=== PATIENT | female | born 1970 | race African-American/Black ===

== ENCOUNTER 2018-06-12 09:53 | Emergency (ER) | payer MEDICARE, MEDICAID ==
[2018-06-12] MEDS ORDERED: BACLOFEN 20 MG TABLET PO ONE (10:11)
[2018-06-12] MEDS ORDERED: KETOROLAC TROMETHAMINE 60 MG/2 ML SDV IM ONE (10:11)
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
[2018-06-12 11:08] LABS: ABSOLUTE LYMPHOCYTES (AUTO) 1.1 10^3/uL (0.5-4.7); ABSOLUTE MONOCYTES (AUTO) 0.4 10^3/uL (0.1-1.4); BASOPHILS % (AUTO) 0.6 % (0-2); EOSINOPHILS % (AUTO) 0.2 % (0-6); HEMATOCRIT 37.4 % (36.0-47.0); HEMOGLOBIN 12.4 g/dL (12.0-15.5); LYMPHOCYTES % (AUTO) 14.2 % (13-45); MEAN CORPUSCULAR HEMOGLOBIN 26.8 pg (27.0-33.4); MEAN CORPUSCULAR HGB CONC 33.2 g/dL (32.0-36.0); MEAN CORPUSCULAR VOLUME 81 fl (80-97); MONOCYTES % (AUTO) 5.5 % (3-13); PLATELET COUNT 290 10^3/uL (150-450); RED BLOOD COUNT 4.63 10^6/uL (3.72-5.28); RED CELL DISTRIBUTION WIDTH 14.7 % (11.5-14.0); SEGMENTED NEUTROPHILS % (AUTO) 79.5 % (42-78); TOTAL CELLS COUNTED % (AUTO) 100 %; WHITE BLOOD COUNT 7.6 10^3/uL (4.0-10.5)
--- NOTE | 2018-06-12 11:14 | RADIOLOGY REPORT (SQ) ---
EXAM DESCRIPTION: L SPINE WHOLE COMPLETED DATE/TIME: 06/12/2018 10:50 am REASON FOR STUDY: Back pain COMPARISON: None. NUMBER OF VIEWS: Five views including obliques. TECHNIQUE: AP, lateral, oblique, and sacral radiographic images acquired of the lumbar spine. LIMITATIONS: None. FINDINGS: MINERALIZATION: Normal. SEGMENTATION: Normal. No transitional anatomy. ALIGNMENT: There is a minimal lumbar scoliosis convex to the left. VERTEBRAE: Maintained height. No fracture or worrisome bone lesion. DISCS: There is multilevel disc space reduction with associated osteophytic lipping. POSTERIOR ELEMENTS: Pedicles and facets are intact. No pars defect or posterior arch defects. HARDWARE: None in the spine. PARASPINAL SOFT TISSUES: Normal. PELVIS: Intact as visualized. No fractures or worrisome bone lesions. SI joints intact. OTHER: No other significant finding. IMPRESSION: Degenerative changes as noted above. TECHNICAL DOCUMENTATION: JOB ID: [id number] [employer]- All Rights Reserved Reading location - IP/workstation name: [email or web address]
[2018-06-12 11:26] LABS: APPEARANCE,URINE CLEAR; BILIRUBIN,URINE NEGATIVE (NEGATIVE); COLOR,URINE YELLOW; GLUCOSE, URINE 500 mg/dL (NEGATIVE)
[2018-06-12 11:27] LABS: KETONES,URINE 25 mg/dL (NEGATIVE); LEUKOCYTE ESTERASE,URINE NEGATIVE (NEGATIVE); NITRITE,URINE NEGATIVE (NEGATIVE); PROTEIN,URINE 100 mg/dL (NEGATIVE); URINE SPECIFIC GRAVITY 1.033; UROBILINOGEN,URINE NEGATIVE mg/dL (<2.0)
[2018-06-12 11:30] LABS: ALANINE AMINOTRANSFERASE 35 U/L (9-52); ALBUMIN 4.5 g/dL (3.5-5.0); ALKALINE PHOSPHATASE 45 U/L (38-126); ANION GAP 15 (5-19); ASPARTATE AMINO TRANSFERASE 30 U/L (14-36); BILIRUBIN,DIRECT 0.4 mg/dL (0.0-0.4); BILIRUBIN,TOTAL 0.5 mg/dL (0.2-1.3); BLOOD UREA NITROGEN 11 mg/dL (7-20); CALCIUM 9.5 mg/dL (8.4-10.2); CARBON DIOXIDE 21 mmol/L (22-30); CHLORIDE 103 mmol/L (98-107); GLUCOSE 218 mg/dL (75-110); POTASSIUM 4.3 mmol/L (3.6-5.0); SODIUM 138.8 mmol/L (137-145); TOTAL PROTEIN 7.6 g/dL (6.3-8.2)
[2018-06-12 11:34] LABS: URINE AMPHETAMINES SCREEN NEGATIVE; URINE BARBITURATES SCREEN NEGATIVE; URINE BENZODIAZEPINES SCREEN NEGATIVE; URINE COCAINE SCREEN NEGATIVE; URINE MARIJUANA (THC) SCREEN NEGATIVE; URINE METHADONE SCREEN NEGATIVE; URINE PHENCYCLIDINE SCREEN NEGATIVE
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
--- NOTE | 2018-06-12 13:38 | RADIOLOGY REPORT (SQ) ---
EXAM DESCRIPTION: CT LTD RENAL STONE PROTOCOL ON COMPLETED DATE/TIME: 06/12/2018 1:27 pm REASON FOR STUDY: r flank pain COMPARISON: None. TECHNIQUE: CT scan of the abdomen and pelvis performed without intravenous or oral contrast. Images reviewed with lung, soft tissue, and bone windows. Reconstructed coronal and sagittal MPR images revi ewed. All images stored on PACS. All CT scanners at this facility use dose modulation, iterative reconstruction, and/or weight based d osing when appropriate to reduce radiation dose to as low as reasonably achievable (ALARA). [facility]: Dose Right [facility]: CareDose [facility]: Dose Right [facility]: Teradose 4D [facility]: Smart Birdi RADIATION DOSE: CT Rad equipment meets quality standard of care and radiation dose reduction techniq ues were employed. CTDIvol: 13.4 mGy. DLP: 771 mGy-cm.mGy. LIMITATIONS: None. FINDINGS: LOWER CHEST: No significant findings. No nodules or infiltrates. NON-CONTRASTED LIVER, SPLEEN, ADRENALS: Evaluation limited by lack of IV contrast. No identified sign ificant masses. PANCREAS: No masses. No peripancreatic inflammatory changes. GALLBLADDER: No identified stones by CT criteria. No inflammatory changes to suggest cholecystitis. RIGHT KIDNEY AND URETER: No suspicious masses. Assessment limited by lack of IV contrast. No signif icant calcifications. No hydronephrosis or hydroureter. LEFT KIDNEY AND URETER: No suspicious masses. Assessment limited by lack of IV contrast. No signifi cant calcifications. No hydronephrosis or hydroureter. AORTA AND RETROPERITONEUM: No aneurysm. No retroperitoneal masses or adenopathy. BOWEL AND PERITONEAL CAVITY: No obvious masses or inflammatory changes. No free fluid. APPENDIX: Normal. PELVIS, BLADDER, AND ABDOMINAL WALL:There is uterine enlargement measuring 11 cm in AP diameter, 14.1 cm in transverse diameter, and 15.1 cm in cephalocaudal dad diameter most consistent with an enlarge d fibroid uterus. No free fluid. Bladder normal. BONES: Degenerative changes are identified in the lumbar spine with a mild lumbar scoliosis convex to the left OTHER: No other significant finding. IMPRESSION: Enlarged uterus as noted above most consistent with a fibroid uterus. No other signific ant intra-abdominal or pelvic abnormalities were identified. Other findings as noted above COMMENT: Quality ID # [id number]: Final reports with documentation of one or more dose reduction techniques (e.g., Automated exposure control, adjustment of the mA and/or kV according to patient size, use of iterative reconstruction technique) TECHNICAL DOCUMENTATION: JOB ID: [id number] [employer]- All Rights Reserved Reading location - IP/workstation name: [email or web address]
[2018-06-12] MEDS ORDERED: LIDOCAINE 5% (700 MG) TRANSDERMAL ADH..PATCH TP ONE (13:52)
[2018-06-12 14:31] VITALS: BP 135/86
== END 2018-06-12 14:29 | disposition home or self-care (01) ==
LOC: ER 09:53
DX: M54.5 Low back pain (principal); R10.9 Unspecified abdominal pain; I10 Essential (primary) hypertension; E11.9 Type 2 diabetes mellitus without complications
CPT/HCPCS: 99284; 96372; 36415; 85025; 81025; 80053; 81001; 80307; 72110; 76380; J1885; A9270; J3490

== ENCOUNTER 2018-08-07 05:17 | Inpatient (IN) | payer MEDICARE, MEDICAID ==
[2018-07-31 11:41] LABS: APPEARANCE,URINE CLEAR; BILIRUBIN,URINE NEGATIVE (NEGATIVE); COLOR,URINE YELLOW; GLUCOSE, URINE 150 mg/dL (NEGATIVE); KETONES,URINE NEGATIVE (NEGATIVE); LEUKOCYTE ESTERASE,URINE NEGATIVE (NEGATIVE); NITRITE,URINE NEGATIVE (NEGATIVE); PROTEIN,URINE NEGATIVE (NEGATIVE); URINE SPECIFIC GRAVITY 1.018; UROBILINOGEN,URINE NEGATIVE mg/dL (<2.0)
[2018-07-31 12:17] LABS: HEMATOCRIT 34.7 % (36.0-47.0); HEMOGLOBIN 12.1 g/dL (12.0-15.5); MEAN CORPUSCULAR HEMOGLOBIN 28.3 pg (27.0-33.4); MEAN CORPUSCULAR HGB CONC 34.9 g/dL (32.0-36.0); MEAN CORPUSCULAR VOLUME 81 fl (80-97); PLATELET COUNT 272 10^3/uL (150-450); RED BLOOD COUNT 4.29 10^6/uL (3.72-5.28); RED CELL DISTRIBUTION WIDTH 13.9 % (11.5-14.0); WHITE BLOOD COUNT 6.8 10^3/uL (4.0-10.5)
[2018-07-31 12:44] LABS: ALANINE AMINOTRANSFERASE 28 U/L (9-52); ALBUMIN 4.5 g/dL (3.5-5.0); ALKALINE PHOSPHATASE 50 U/L (38-126); ANION GAP 16 (5-19); ASPARTATE AMINO TRANSFERASE 15 U/L (14-36); BILIRUBIN,DIRECT 0.1 mg/dL (0.0-0.4); BILIRUBIN,TOTAL 0.5 mg/dL (0.2-1.3); BLOOD UREA NITROGEN 11 mg/dL (7-20); CALCIUM 9.6 mg/dL (8.4-10.2); CARBON DIOXIDE 26 mmol/L (22-30); CHLORIDE 98 mmol/L (98-107); GLUCOSE 169 mg/dL (75-110); POTASSIUM 5.1 mmol/L (3.6-5.0); TOTAL PROTEIN 7.1 g/dL (6.3-8.2)
--- NOTE | 2018-07-31 13:14 | RADIOLOGY REPORT (SQ) ---
EXAM DESCRIPTION: CHEST PA/LATERAL COMPLETED DATE/TIME: 07/31/2018 12:09 pm REASON FOR STUDY: PRE-OP COMPARISON: None. EXAM PARAMETERS: NUMBER OF VIEWS: two views TECHNIQUE: Digital Frontal and Lateral radiographic views of the chest acquired. RADIATION DOSE: NA LIMITATIONS: none FINDINGS: LUNGS AND PLEURA: No opacities, masses or pneumothorax. No pleural effusion. MEDIASTINUM AND HILAR STRUCTURES: No masses or contour abnormalities. HEART AND VASCULAR STRUCTURES: Heart normal size. No evidence for failure. BONES: No acute findings. HARDWARE: None in the chest. OTHER: No other significant finding. IMPRESSION: NO SIGNIFICANT RADIOGRAPHIC FINDING IN THE CHEST. TECHNICAL DOCUMENTATION: JOB ID: [id number] [employer]- All Rights Reserved Reading location - IP/workstation name: [email or web address]
--- NOTE | 2018-07-31 13:18 | EKG REPORT ---
SEVERITY:- BORDERLINE ECG - SINUS RHYTHM LVH BY VOLTAGE : Confirmed by: Laureano Gage MD 31-Jul-2018 13:18:11
[~2018-08-07 05:17] MED LIST: CEFAZOLIN 1 GM/D5W RTU 1 GM/50 ML RTUPB IV PRN; LACTATED RINGERS 1000 ML IV PRN; LIDOCAINE 0.5% INJ-PF (5 MG/ML) 50 ML SDV SUBCUT PRN
[2018-08-07] MEDS ORDERED: CEFAZOLIN 1 GM/D5W RTU 1 GM/50 ML RTUPB IV ONE (05:23)
[2018-08-07] MEDS ORDERED: LIDOCAINE 2% INJ-PF (20 MG/ML) 10 ML AMPUL ONE (06:36)
[2018-08-07] MEDS ORDERED: ONDANSETRON HCL INJ/PF 4 MG/2 ML SDV ONE (06:37)
[2018-08-07] MEDS ORDERED: DEXAMETHASONE SOD PHOSPHATE INJ 4 MG/1 ML VIAL ONE (06:37)
[2018-08-07] MEDS ORDERED: PROPOFOL INJ 200 MG/20 ML VIAL IV ONE (06:37)
[2018-08-07] MEDS ORDERED: MIDAZOLAM 2 MG/2 ML INJ ONE (06:37)
[2018-08-07] MEDS ORDERED: FENTANYL CITRATE INJ/PF 100 MCG/2 ML AMPUL ONE ×2 (06:37→09:37)
[2018-08-07] MEDS ORDERED: ACETAMINOPHEN 1,000 MG/100 ML RTUPB IV ONE (06:37)
[2018-08-07] MEDS ORDERED: SUGAMMADEX SODIUM 200 MG/2 ML SDV IV ONE (06:38)
[2018-08-07] MEDS ORDERED: BUPIVACAINE HCL 0.5 % INJ/PF 30 ML SDV ONE (06:48)
[2018-08-07] MEDS ORDERED: FAMOTIDINE INJ/PF 20 MG/2 ML SDV IV ONE (07:09)
[2018-08-07] MEDS ORDERED: SCOPOLAMINE HYDROBROMIDE 1.5 MG PATCH.TD72 ONE (07:09)
[2018-08-07] MEDS ORDERED: METOCLOPRAMIDE HCL INJ/PF 10 MG/2 ML SDV ONE (07:09)
[2018-08-07] MEDS ORDERED: MORPHINE SULFATE 10 MG/ML INJ IV PRN (08:10)
[2018-08-07] MEDS ORDERED: ONDANSETRON HCL INJ/PF 4 MG/2 ML SDV IV PRN (08:10)
[2018-08-07] MEDS ORDERED: FENTANYL CITRATE INJ/PF 100 MCG/2 ML AMPUL IV PRN ×2 (08:10)
[2018-08-07] MEDS ORDERED: PROMETHAZINE HCL INJ 25 MG/1 ML VIAL IV PRN ×2 (08:10)
[2018-08-07] MEDS ORDERED: MEPERIDINE HCL/PF INJ 25 MG/1 ML DISP.SYRIN IV PRN (08:10)
[2018-08-07] MEDS ORDERED: DIPHENHYDRAMINE HCL 50 MG/ML VIAL IV PRN (08:10)
[2018-08-07] MEDS ORDERED: ROCURONIUM BROMIDE INJ 50 MG/5 ML VIAL IV ONE (09:22)
[2018-08-07] MEDS ORDERED: SUCCINYLCHOLINE CHLORIDE INJ 200 MG/10 ML VIAL ONE (09:22)
[2018-08-07] MEDS: FENTANYL CITRATE INJ/PF 100 MCG/2 ML AMPUL IV PRN ×2 (09:40→09:50)
[2018-08-07] MEDS ORDERED: MORPHINE SULFATE 10 MG/ML INJ IM PRN (09:44)
[2018-08-07] MEDS ORDERED: OXYCODONE-ACETAMINOPHEN 5-325 MG TABLET PO PRN (09:46)
[2018-08-07] MEDS ORDERED: DEXTROSE 5%-LACTATED RINGERS 1,000 ML IV PRN (09:48)
--- NOTE | 2018-08-07 10:27 | OPERATIVE REPORT E ---
Operative Report NAME: CANELO VLALES : 1970 AGE: 48Y DATE OF SURGERY: 08/07/2018 ROOM: OR PREOPERATIVE DIAGNOSIS: FIBROID UTERUS WITH HYPERMENORRHEA. POSTOPERATIVE DIAGNOSIS: FIBROID UTERUS WITH HYPERMENORRHEA. OPERATION: Diagnostic laparoscopy with open laparotomy, hysterectomy, and bilateral salpingo-oophorectomy. SURGEON: Seferino BILL M.D. ANESTHESIA: General. ESTIMATED BLOOD LOSS: Approximately 600 mL. TISSUE REMOVED OR ALTERED: Uterus and tubes. PROCEDURE: The patient was placed in the dorsal lithotomy position, prepped and draped in sterile fashion. A speculum was placed and the cervix visualized and grasped with a single-tooth tenaculum and sounded to a depth of 11 cm. The uterine manipulator was placed per protocol. Attention was turned to the abdomen. A supraumbilical incision was made in the midline. The trocar was introduced and was placed in the abdomen in the direction of the laparoscope. The uterus was large and could not be seen around the left or could not be seen on the anterior portion and it was decided intraoperative to convert to an open laparotomy. The laparoscope was removed then deflated, trocar sleeves removed. That incision was closed with 0-Vicryl for the fascia and 4-0 Vicryl subcutaneously. A midline incision was made from just above the symphysis below the umbilicus and extended through the fascia. Fascia sharply divided. Rectus muscle bluntly and sharply divided. Peritoneum was entered with sharp dissection. The bowel was packed with saline moistened packs. O'Zbigniew-O'Pavon retractor was placed. The uterus was grasped at the utero-ovarian ligament and the uterine ligament was then divided and sutured with 2-0 Vicryl. The left round was identified and sutured and divided. The procedure was repeated on the right. The tubes were removed by cautery along the mesosalpinx. Serial clamps on each side of the uterus with each pedicle being divided and sutured with 2-0 Vicryl. This was continued down to the level of the lower uterine segment and the upper portion of the uterus was then removed. The remaining lower uterine segment and cervix then removed by using serial clamps on each side of the broad ligament with each pedicle being clamped, divided, and sutured with 2-0 Vicryl continued to the level of the cervix which was cross-clamped. The cervix and lower urine segment was removed. The cuff was closed with interrupted sutures of 2-0 Vicryl. There was a small amount of bleeding noted on the right where the clamps had slipped. This was controlled with [id number] suture of 2-0 Vicryl. Pelvis irrigated with normal saline. Hemostasis was noted. The packs removed. The retractor was removed and the fascia was closed with #1 PDS, the subcutaneous with interrupted 0-Plain, and the skin with subcutaneous absorbable macey. The patient tolerated well and was taken to recovery in good condition. Urine remained clear throughout the procedure. DICTATING PHYSICIAN: Seferino BILL M.D. [id number] PHY#: [id number] ID: [id number] JOB#: [id number] ACCT: [id number] cc:Seferino BILL M.D. >
[2018-08-07] MEDS: IBUPROFEN 800 MG TABLET PO SCH ×2 (13:49→22:48)
[2018-08-07] MEDS: METFORMIN HCL 500 MG TABLET PO SCH (18:30)
[2018-08-07] MEDS ORDERED: ATORVASTATIN CALCIUM 20 MG TABLET PO SCH (22:00)
[2018-08-08] MEDS: IBUPROFEN 800 MG TABLET PO SCH (06:50)
--- NOTE | 2018-08-08 07:10 | PDOC PROGRESS REPORT ---
Subjective-OB Progress Note for:: 08/08/18 Physical Exam (OB) Vital Signs: Temp Pulse Resp BP Pulse Ox 99.3 F 107 H 18 127/78 H 98 08/08/18 03:15 08/08/18 03:15 08/08/18 03:15 08/08/18 03:15 08/08/18 03:15 Intake & Output 08/07/18 08/08/18 08/09/18 06:59 06:59 06:59 Intake Total 0 5010 Output Total 5350 Balance 0 -340 Weight 88 kg 88.1 kg - General General Appearance: Appears well - Lochia Lochia Amount: Scant < 10 ml Lochia Color: Rubra/Red - Abdomen Hernia Present: No - Respiratory Breath sounds: Clear - Abdominal Distension: No distension - Extremities Calf: Normal Objective-Diagnostic Laboratory: 07/31/18 11:52 08/07/18 05:30 Assessment and Plan(PN) Plan:: d/c today - Time Spent with Patient Time with patient: Less than 15 minutes Medications reviewed and adjusted accordingly: Yes - Disposition Anticipated Discharge: Home Within: within 24 hours
--- NOTE | 2018-08-08 07:16 | PDOC DISCHARGE SUMMARY ---
General - Admit/Disc Date/PCP Admission Date/Primary Care Provider: 08/07/18 05:17 Bala MONTIEL Discharge Date: 08/08/18 - Discharge Diagnosis (1) Fibroid, uterine Is this a current diagnosis for this admission?: Yes (2) Menorrhagia Is this a current diagnosis for this admission?: Yes - Additional Information Resuscitation Status: Full Code Discharge Diet: Regular Discharge Activity: Balance Activity w/Rest, No Lifting/Push/Pulling, Pelvic Rest, Slowly Increase Activity, Walk Frequently Prescriptions: Oxycodone HCl/Acetaminophen [Percocet 5-325 mg Tablet] 1 tab PO Q4HP PRN #30 tablet PRN Reason: Ibuprofen [Motrin 800 mg Tablet] 800 mg PO Q8 #90 tablet Home Medications: Atorvastatin Calcium [Lipitor 20 mg Tablet] 20 mg PO QHS 08/07/18 Benazepril HCl [Lotensin 5 mg Tablet] 5 mg PO DAILY 08/07/18 Cholecalciferol (Vitamin D3) [Vitamin D3 1000 Unit Tablet] 1,000 unit PO DAILY 08/07/18 Ferrous Sulfate [Feosol 325 mg Tablet] 325 mg PO DAILY 08/07/18 Metformin HCl [Glucophage 500 mg Tablet] 1,000 mg PO BID 08/07/18 Sitagliptin Phosphate [Januvia] 100 mg PO QAM MDD filled 05/21 for 30daysupply Ibuprofen [Motrin 800 mg Tablet] 800 mg PO Q8 #90 tablet 08/08/18 Oxycodone HCl/Acetaminophen [Percocet 5-325 mg Tablet] 1 tab PO Q4HP PRN #30 tablet 08/08/18 History of Present Illness Patient complains of: heavy bleeding and pelvic pain History of Present Illness: CANELO VALLES is a 48 year old female Physical Exam - Physical Exam Vital Signs: Temp Pulse Resp BP Pulse Ox 99.3 F 107 H 18 127/78 H 98 08/08/18 03:15 08/08/18 03:15 08/08/18 03:15 08/08/18 03:15 08/08/18 03:15 Intake & Output 08/07/18 08/08/18 08/09/18 06:59 06:59 06:59 Intake Total 0 5010 Output Total 5350 Balance 0 -340 Weight 88 kg 88.1 kg General appearance: PRESENT: no acute distress Respiratory exam: PRESENT: clear to auscultation jony GI/Abdominal exam: PRESENT: normal bowel sounds, soft Result Laboratory Results: 07/31/18 11:52 08/07/18 05:30 Impressions: Chest X-Ray 07/31/18 11:59 IMPRESSION: NO SIGNIFICANT RADIOGRAPHIC FINDING IN THE CHEST. Plan Discharge Plan: d/c home f/u 1 week or prn Time Spent: Less than 30 Minutes
[2018-08-08] MEDS ORDERED: SITAGLIPTIN PHOSPHATE 50 MG TABLET PO SCH (08:00)
[2018-08-08] MEDS: METFORMIN HCL 500 MG TABLET PO SCH (08:06)
[2018-08-08] MEDS ORDERED: BENAZEPRIL HCL 5 MG TABLET PO SCH (10:00)
[2018-08-08] MEDS ORDERED: FERROUS SULFATE 325 MG TABLET PO SCH (10:00)
[2018-08-08 10:24] VITALS: BP 147/85
== END 2018-08-08 13:15 | disposition home or self-care (01) | DRG 743 ==
LOC: INOR 05:17 → 2N 11:20
PROVIDERS: ADMIT Obstetrics & Gynecology Gynecology; ATTEND Obstetrics & Gynecology Gynecology
PROC: 0UT20ZZ Resection of Bilateral Ovaries, Open Approach (ICD-10-PCS; 2018-08-07)
PROC: 0UT70ZZ Resection of Bilateral Fallopian Tubes, Open Approach (ICD-10-PCS; 2018-08-07)
PROC: 0UT90ZZ Resection of Uterus, Open Approach (ICD-10-PCS; principal; 2018-08-07 07:15)
DX: D25.1 Intramural leiomyoma of uterus (principal); D25.2 Subserosal leiomyoma of uterus; N92.0 Excessive and frequent menstruation with regular cycle; E78.5 Hyperlipidemia, unspecified; I10 Essential (primary) hypertension; E11.9 Type 2 diabetes mellitus without complications; Z79.84 Long term (current) use of oral hypoglycemic drugs; Z79.899 Other long term (current) drug therapy
CPT/HCPCS: 36415; 71046; 80053; 81001; 81025; 82962; 840; 84132; 85027; 86850; 86900; 86901; 88307; 93005; 93010; J0131; J0330; J0690; J1100; J2250; J2405; J2704; J2765; J3010; J3490; J7120; S0028

== ENCOUNTER 2018-08-12 09:26 | Emergency (ER) | payer MEDICARE, MEDICAID ==
--- NOTE | 2018-08-12 10:11 | ER Document Report ---
ED General - General Chief Complaint: Post Surgical Pain Stated Complaint: POST SURGICAL CHECK Time Seen by Provider: 08/12/18 10:06 Mode of Arrival: Ambulatory Information source: Patient, Friend, [facility] Records Notes: 48-year-old female with hypertension, hyperlipidemia, type 2 diabetes presents for a postop wound check. Patient states that on August 07 she underwent a hysterectomy and salpingectomy with Dr. Kennedy. She states that earlier today her boyfriend helped change her bandage and became concerned that the wound was coming apart. Patient denies any increased pain, fever, chills, nausea, vomiting. Patient does admit to shortness of breath that started after surgery as well as right lower extremity pain. Patient states that she is more short of breath with minimal activity than she was prior to surgery. She denies any previous history of PE, DVT. TRAVEL OUTSIDE OF THE [place] IN LAST 30 DAYS: No - HPI Onset: Just prior to arrival Onset/Duration: Gradual, Persistent Quality of pain: No pain Severity: Mild Associated symptoms: Leg swelling, Shortness of breath. denies: Chest pain, Fever, Nausea, Vomiting, Rhinnorhea Exacerbated by: Walking Relieved by: Remaining still Similar symptoms previously: No Recently seen / treated by doctor: Yes - Related Data Allergies/Adverse Reactions: No Known Allergies Allergy (Verified 08/12/18 09:32) Past Medical History - General Information source: Patient, Friend, [facility] Records - Social History Smoking Status: Never Smoker Frequency of alcohol use: None Drug Abuse: None Lives with: Spouse/Significant other Family History: Reviewed & Not Pertinent Patient has suicidal ideation: No Patient has homicidal ideation: No - Past Medical History Cardiac Medical History: Reports: Hx Hypertension Denies: Hx Atrial Fibrillation, Hx Congestive Heart Failure, Hx Coronary Artery Disease, Hx Heart Attack, Hx Hypercholesterolemia, Hx Peripheral Vascular Disease, Hx Pulmonary Embolism, Hx Heart Murmur Pulmonary Medical History: Denies: Hx Asthma, Hx Bronchitis, Hx COPD, Hx Pneumonia, Hx Respiratory Failure, Hx Sleep Apnea, Hx Tuberculosis Neurological Medical History: Denies: Hx Cerebrovascular Accident, Hx Seizures Endocrine Medical History: Reports: Hx Diabetes Mellitus Type 2. Denies: Hx Graves' Disease, Hx Hyperthyroidism, Hx Hypothyroidism Renal/ Medical History: Denies: Hx End Stage Renal Disease, Hx Kidney Stones, Hx Ovarian Cysts, Hx Peritoneal Dialysis, Hx Pelvic Inflammatory Disease Malignancy Medical History: Denies: Hx Breast Cancer, Hx Cervical Cancer, Hx Leukemia, Hx Lung Cancer, Hx Ovarian Cancer GI Medical History: Denies: Hx Crohn's Disease, Hx Gastroesophageal Reflux Disease, Hx Hepatitis, Hx Hiatal Hernia, Hx Irritable Bowel, Hx Liver Failure, Hx Pancreatitis, Hx Ulcer Musculoskeletal Medical History: Denies Hx Arthritis, Denies Hx Fibromyalgia, Denies Hx Muscular Dystrophy, Denies Hx Muscle Weakness Psychiatric Medical History: Denies: Hx Bipolar Disorder, Hx Depression, Hx Post Traumatic Stress Disorder , Hx Schizophrenia Traumatic Medical History: Denies: Hx Fractures Infectious Medical History: Denies: Hx Hepatitis, Hx HIV Past Surgical History: Reports: Hx Tubal Ligation, Other. Denies: Hx Appendectomy, Hx Bowel Surgery, Hx Section, Hx Cholecystectomy, Hx Colostomy, Hx Coronary Artery Bypass Graft, Hx Gastric Bypass Surgery, Hx Herniorrhaphy, Hx Hysterectomy, Hx Mastectomy, Hx Open Heart Surgery, Hx Pacemaker, Hx Tonsillectomy Review of Systems - Review of Systems Notes: REVIEW OF SYSTEMS: CONSTITUTIONAL : Denies fever, chills, or sweats. Denies recent illness. Denies weight loss, recent hospitalizations. EENT: Denies visual changes, eye pain. Denies sore throat, oral lesions, difficulty swallowing. CARDIOVASCULAR: Denies chest pain. Denies palpitations. Denies lower extremity edema. RESPIRATORY: Denies cough. GASTROINTESTINAL: Denies abdominal pain or distention. Denies nausea, vomiting , or diarrhea. Denies blood in vomitus, stools, or per rectum. Denies black, tarry stools. Denies constipation. GENITOURINARY: Denies difficulty urinating, painful urination, frequency, blood in urine, or vaginal discharge. MUSCULOSKELETAL: Denies back or neck pain or stiffness. Denies joint pain or swelling. SKIN: Denies rash, lesions or sores. HEMATOLOGIC : Denies easy bruising or bleeding. LYMPHATIC: Denies swollen glands. NEUROLOGICAL: Denies confusion or altered mental status. Denies loss of consciousness. Denies dizziness or lightheadedness. Denies headache. Denies weakness or paralysis. Denies problems difficulty with ambulation, slurred speech. Denies sensory loss, numbness, or tingling. Denies seizures. PSYCHIATRIC: Denies anxiety or stress. Denies depression, suicidal ideation, or homicidal ideation. Denies visual or auditory hallucinations. Physical Exam - Vital signs Vitals: Temp Pulse Resp BP Pulse Ox 98.3 F 86 16 149/96 H 100 08/12/18 09:37 08/12/18 09:37 08/12/18 09:37 08/12/18 09:37 08/12/18 09:37 - Notes Notes: PHYSICAL EXAMINATION: GENERAL: Well-appearing, well-nourished and in no acute distress. HEAD: Atraumatic, normocephalic. EYES: Pupils equal round and reactive to light, extraocular movements intact, conjunctiva are normal. ENT: Nares patent, oropharynx clear without exudates. Moist mucous membranes. NECK: Normal range of motion, supple without lymphadenopathy LUNGS: Breath sounds clear to auscultation bilaterally and equal. No wheezes rales or rhonchi. HEART: Regular rate and rhythm without murmurs ABDOMEN: Soft, nontender, nondistended abdomen. No guarding, no rebound. No masses appreciated. Female : deferred Musculoskeletal: Normal range of motion, no pitting or edema. No cyanosis. NEUROLOGICAL: Cranial nerves grossly intact. Normal speech, normal gait. Normal sensory, motor exams PSYCH: Normal mood, normal affect. SKIN: Vertical surgical lower abdominal scar with mild dehiscence at the inferior aspect just above the pubic symphysis. No associated erythema, purulent discharge, tenderness. Course - Re-evaluation Re-evalutation: 48-year-old female presents with concern for dehiscence of her surgical wound. Vital signs reviewed upon arrival. Patient is afebrile, mildly hypertensive but does not appear toxic or dehydrated. She is in no acute distress. Exam is significant for mild dehiscence of the surgical wound of the abdomen at the inferior aspect. No associated erythema, warmth or purulent drainage around the site. Patient denies any increased pain, nausea, chills, fever. She states that she only present at this morning after her boyfriend changed her bandage and she became concerned that it looked like it was pulling apart. On review of systems patient does admit to shortness of breath that started just after surgery. She did also report intermittent swelling of her right lower extremity which is associated physical exam, right leg nontender. At this time EKG, d-dimer and chest x-ray will be obtained. 08/12/18 10:[address] Kennedy oncologist who performed the patient's surgery on August 07. I did explain the mild dehiscence of the wound which he states was present initially. He is okay with Steri stripping the area and having the patient follow-up in office. 08/12/18 10:28 08/12/18 12:53 D-dimer was obtained secondary to the patient's complaint of shortness of breath and recent surgery. This was elevated so a CT was performed and negative for clot. I did explain to the patient that I spoke to Dr. Kennedy who is okay with Steri stripping the wound and would like to see her this week. Patient comfortable with discharge home. Patient was evaluated and treated as appropriate for the patient's presenting symptoms and complaint, with consideration of any critical or life threatening conditions that may be associated with their obtained history and exam as noted above. All results were discussed with patient. Patient provided the opportunity to ask questions, and express concerns. Patient was educated on treatments based on their presumed diagnosis as noted above. At this time we will discharge the patient with return precautions and follow-up recommendations. Verbal discharge instructions given a the bedside. Medication warnings reviewed. Patient is in agreement with this plan and has verbalized understanding of return precautions. After careful consideration I feel that that patient can be safely discharged from the emergency department, they were advised to followup with a primary care physician in 2-3 days. Dictation on this chart was performed using voice recognition software and may result in unintended grammatical, spelling, syntax or errors. 08/12/18 22:01 - Vital Signs Vital signs: Temp Pulse Resp BP Pulse Ox 98.1 F 95 18 137/92 H 100 08/12/18 13:05 08/12/18 13:05 08/12/18 13:05 08/12/18 13:05 08/12/18 13:05 - Laboratory Result Diagrams: 08/12/18 10:32 Laboratory results interpreted by me: 08/12/18 08/12/18 10:32 10:32 D-Dimer 2.18 H Glucose 218 H - Diagnostic Test Radiology reviewed: Image reviewed, Reports reviewed - EKG Interpretation by Me EKG shows normal: Sinus rhythm Rate: Normal Rhythm: NSR - T wave inversions noted and lead III which have been seen previous on EKG done July 31, 2018 When compared to previous EKG there are: No significant change - QTC 441 Discharge - Discharge Clinical Impression: Encounter for postoperative wound check, Elevated blood pressure reading, Elevated d-dimer Dyspnea Qualifiers: Dyspnea type: unspecified Qualified Code(s): R06.00 - Dyspnea, unspecified Condition: Good Disposition: HOME, SELF-CARE Instructions: Dyspnea, Nonspecific ([facility]) Additional Instructions: Leave on the bandages that we placed on your wound until they fall off on their own. Please call Dr. Kennedy's office tomorrow and inform them they were seen in the emergency department and Dr. Kennedy advised coming in this week. Follow up with your [id number] hours for further care or return to the ED IMMEDIATELY if symptoms worsen or you have any concerns. If you cannot afford to follow up with your primary care physician a list of low cost clinics have been provided at the end of your discharge papers as well. Most prescribed medications have multiple side effects. The safest thing to do is when filling your prescription speak to your pharmacist regarding possible interactions with your normal home medications and over the counter medications such as Ibuprofen, Tylenol, Benadryl. If you experience any symptoms that cause you discomfort or concern you should discontinue the medication immediately and return to the emergency room or call your primary care physician. Referrals: EDMOND ALFONSO I, DO [NO LOCAL MD] - Follow up as needed
--- NOTE | 2018-08-12 10:40 | EKG REPORT ---
SEVERITY:- BORDERLINE ECG - SINUS RHYTHM : Confirmed by: Gertrudis Irene 12-Aug-2018 10:40:22
[2018-08-12 11:06] LABS: ALANINE AMINOTRANSFERASE 31 U/L (9-52); ALBUMIN 3.8 g/dL (3.5-5.0); ALKALINE PHOSPHATASE 50 U/L (38-126); ANION GAP 12 (5-19); ASPARTATE AMINO TRANSFERASE 21 U/L (14-36); BILIRUBIN,DIRECT 0.1 mg/dL (0.0-0.4); BILIRUBIN,TOTAL 0.5 mg/dL (0.2-1.3); BLOOD UREA NITROGEN 10 mg/dL (7-20); CALCIUM 9.1 mg/dL (8.4-10.2); CARBON DIOXIDE 26 mmol/L (22-30); CHLORIDE 102 mmol/L (98-107); GLUCOSE 218 mg/dL (75-110); POTASSIUM 4.6 mmol/L (3.6-5.0); SODIUM 140.3 mmol/L (137-145); TOTAL PROTEIN 6.5 g/dL (6.3-8.2)
--- NOTE | 2018-08-12 11:13 | RADIOLOGY REPORT (SQ) ---
EXAM DESCRIPTION: CHEST 2 VIEWS COMPLETED DATE/TIME: 08/12/2018 11:01 am REASON FOR STUDY: sob COMPARISON: 07/31/2018 EXAM PARAMETERS: NUMBER OF VIEWS: two views TECHNIQUE: Digital Frontal and Lateral radiographic views of the chest acquired. RADIATION DOSE: NA LIMITATIONS: none FINDINGS: LUNGS AND PLEURA: No opacities, masses or pneumothorax. No pleural effusion. MEDIASTINUM AND HILAR STRUCTURES: No masses or contour abnormalities. HEART AND VASCULAR STRUCTURES: Heart normal size. No evidence for failure. BONES: No acute findings. HARDWARE: None in the chest. OTHER: No other significant finding. IMPRESSION: No acute abnormality of the lungs. No focal airspace opacity. TECHNICAL DOCUMENTATION: JOB ID: [id number] [employer]- All Rights Reserved Reading location - IP/workstation name: [email or web address]
--- NOTE | 2018-08-12 12:42 | RADIOLOGY REPORT (SQ) ---
EXAM DESCRIPTION: CTA CHEST COMPLETED DATE/TIME: 08/12/2018 12:20 pm REASON FOR STUDY: elevated dimer post op sob COMPARISON: None. TECHNIQUE: CT scan of the chest performed using helical scanning technique with dynamic intravenous contrast injection. Images reviewed with lung, soft tissue and bone windows. Reconstructed coronal and sagittal MPR images reviewed. Additional 3 dimensional post-processing performed to develop Maximal Intensity Projection images (IN P). All images stored on PACS. All CT scanners at this facility use dose modulation, iterative reconstruction, and/or weight based d osing when appropriate to reduce radiation dose to as low as reasonably achievable (ALARA). [facility]: Dose Right [facility]: CareDose [facility]: Dose Right [facility]: Teradose 4D [facility]: 8 [employer] CONTRAST TYPE AND DOSE: contrast/concentration: Isovue mg/ml; Total Contrast Delivered: 78.0 ml; To seb Saline Delivered: 95.0 ml Contrast bolus optimized for the pulmonary arteries. Not diagnostic for the aorta. RENAL FUNCTION: Creatinine: 0.65. RADIATION DOSE: CT Rad equipment meets quality standard of care and radiation dose reduction techniq ues were employed. CTDIvol: 18.5 - 33.1 mGy. DLP: 655 mGy-cm. . LIMITATIONS: None. FINDINGS: LUNGS AND PLEURA: No masses, infiltrates, or pneumothorax. No pleural effusions or pleura l calcifications. AORTA AND GREAT VESSELS: No aneurysm. Contrast bolus not optimized for the aorta. HEART: No pericardial effusion. No significant coronary artery calcifications. PULMONARY ARTERIES: No emboli visualized in the main pulmonary arteries or the segmental branches. HILAR AND MEDIASTINAL STRUCTURES: No identified masses or abnormal nodes. HARDWARE: None in the chest. UPPER ABDOMEN: Fatty infiltration of the liver. . THYROID AND OTHER SOFT TISSUES: No masses. No adenopathy. BONES: No acute or significant finding. 3D MIPS: Confirm above findings. OTHER: No other significant finding. IMPRESSION: NORMAL CTA OF THE CHEST. NO PULMONARY EMBOLI. COMMENT: Quality ID # [id number]: Final reports with documentation of one or more dose reduction techniques (e.g., Automated exposure control, adjustment of the mA and/or kV according to patient size, use of iterative reconstruction technique) TECHNICAL DOCUMENTATION: JOB ID: [id number] [place]-[id number] 2010 [email or web address]- All Rights Reserved Reading location - IP/workstation name: [email or web address]
[2018-08-12 13:10] VITALS: BP 137/92
== END 2018-08-12 13:10 | disposition home or self-care (01) ==
LOC: ER 09:26
DX: T81.31XA Disruption of external operation (surgical) wound, not elsewhere classified, initial encounter (principal); Y83.6 Removal of other organ (partial) (total) as the cause of abnormal reaction of the patient, or of later complication, without mention of misadventure at the time of the procedure; R79.1 Abnormal coagulation profile; R06.02 Shortness of breath; M79.89 Other specified soft tissue disorders; M79.604 Pain in right leg; I10 Essential (primary) hypertension; E11.9 Type 2 diabetes mellitus without complications; Z90.710 Acquired absence of both cervix and uterus; Z90.79 Acquired absence of other genital organ(s)
CPT/HCPCS: 36415; 71046; 71275; 80053; 85379; 93005; 93010; 99284